=== PATIENT | male | born 1945 | race Two or more races ===

== ENCOUNTER 2017-01-26 23:41 | Emergency (ER) | payer MEDICAID, MEDICARE, OTHER ==
[~2017-01-26] VITALS: Ht 160 cm; Wt 59.0 kg
[2017-01-26] MEDS ORDERED: ASPIR 8181 MG ORAL (23:50)
[2017-01-27] MEDS ORDERED: Tylenol #3 tab (300mg/30mg) ORAL ONE
[2017-01-27 01:40] VITALS: BP 158/78
[2017-01-27] MEDS ORDERED: Morphine Sulfate 4mg/ml Inj IVP ONE (01:45)
[2017-01-27 02:09] LABS: MEAN CORPUSCULAR HEMOGLOBIN 29.4 PG (27.0-31.0); MEAN CORPUSCULAR VOLUME 92 FL (80-99); MEAN PLATELET VOLUME 7.2 FL (6.5-10.1); PLATELET COUNT 214 K/UL (150-450); RED BLOOD COUNT 5.09 M/UL (4.70-6.10); RED CELL DISTRIBUTION WIDTH 11.9 % (11.6-14.8); WHITE BLOOD COUNT 10.1 K/UL (4.8-10.8)
[2017-01-27 02:25] LABS: ALANINE AMINOTRANSFERASE 14 U/L (3-41); ALBUMIN/GLOBULIN RATIO 1.5 (1.0-2.7); ANION GAP 15 (5-15); ASPARTATE AMINO TRANSFERASE 21 U/L (5-40); CALCIUM 9.2 mg/dL (8.6-10.2); CARBON DIOXIDE 27 mEQ/L (20-30); CHLORIDE 96 mEQ/L (98-107); GLOMERULAR FILTRATION RATE > 60 mL/min (>60); HEMOLYSIS 9; POTASSIUM 3.9 mEQ/L (3.4-4.9); SODIUM 138 mEQ/L (135-145); TOTAL PROTEIN 6.5 g/dL (6.6-8.7)
[2017-01-27 02:30] LABS: TROPONIN I < 0.30 ng/mL (<=0.30)
[2017-01-27 02:36] VITALS: BP 155/72
[2017-01-27 02:36] LABS: CKMB 2.9 ng/mL (< 6.7)
--- NOTE | 2017-01-27 02:36 | Emergency Room Report ---
History of Present Illness General Chief Complaint: Pain Source: Patient, Family Member, EMS Present Illness HPI 71-year-old male presents ED complaining of left-sided rib pain status post fall. Son at bedside states that patient had a mechanical fall in shower tonight and landed on his left-sided ribs. Denies hitting his head or LOC. Complaining of 10 out of 10 pain to the left ribs. Sharp. Worse with deep breaths and movement. No aggravating or relieving factors. Denies shortness of breath. Denies cough. Denies any injuries. Denies any other associated symptoms Allergies: Coded Allergies: No Known Allergies (Unverified , 01/26/17) Patient History Past Medical History: HTN Past Surgical History: none Pertinent Family History: none Social History: Denies: alcohol use, drug use, smoking Immunizations: UTD Reviewed Nursing Documentation: PMH: Agreed, PSxH: Agreed Nursing Documentation-PM Past Medical History: No History, Except For Hx Hypertension: Yes Review of Systems All Other Systems: negative except mentioned in HPI Physical Exam Vital Signs Date Time Temp Pulse Resp B/P Pulse Ox O2 Delivery O2 Flow Rate FiO2 01/26/17 23:44 98.2 68 16 163/81 98 Room Air Sp02 EP Interpretation: reviewed, normal General Appearance: no apparent distress, alert, GCS 15, non-toxic Head: normocephalic Eyes: bilateral eye PERRL, bilateral eye normal inspection ENT: normal ENT inspection Neck: normal inspection Respiratory: normal breath sounds, speaking full sentences, other - L sided rib pain/bruising Cardiovascular #1: regular rate, rhythm, no edema Gastrointestinal: normal inspection Rectal: deferred Genitourinary: no CVA tenderness Musculoskeletal: normal inspection Neurologic: alert, oriented x3, responsive, motor strength/tone normal, sensory intact, speech normal Psychiatric: normal inspection Skin: normal inspection Lymphatic: normal inspection Medical Decision Making Diagnostic Impression: Primary Impression: Multiple fractures of ribs Qualified Codes: S22.42XA - Multiple fractures of ribs, left side, initial encounter for closed fracture Additional Impression: Fall in bathtub Qualified Codes: W18.2XXA - Fall in (into) shower or empty bathtub, initial encounter ER Course Hospital Course 71-year-old male presents to ED with L sided rib pain status post fall in shower Differential diagnoses include: fracture, dislocation, contusion Clinical course Patient placed on stretcher. After initial history and physical I ordered CT Chest CT Chest shows multiple retractions on the left with small focus suggestive of hemothorax versus pneumothorax Given patient's age and multiple rib fractures I believe patient should be admitted for pain control and observation. case discussed with [facility] trauma team and they agreed to accept the patient Labs reviewed-no leukocytosis noted, electrolytes okay, hemoglobin/hematocrit okay, trop negative EKG - NSR, no acute changes i. I feel this is a highly complex case requiring extensive working including EKG/Rhythm strip, Xray/CT/US, Blood/urine lab work, repeat exams while in ED, and administration of strong opiates/narcotics for pain control, admission to hospital or close patient follow up. Diagnosis - multiple fracture ribs, fall in bathtub Transferred in serious condition Labs Test 01/27/17 01:57 White Blood Count 10.1 K/UL (4.8-10.8) Red Blood Count 5.09 M/UL (4.70-6.10) Hemoglobin 15.0 G/DL (14.2-18.0) Hematocrit 46.8 % (42.0-52.0) Mean Corpuscular Volume 92 FL (80-99) Mean Corpuscular Hemoglobin 29.4 PG (27.0-31.0) Mean Corpuscular Hemoglobin Concent 32.0 G/DL (32.0-36.0) Red Cell Distribution Width 11.9 % (11.6-14.8) Platelet Count 214 K/UL (150-450) Mean Platelet Volume 7.2 FL (6.5-10.1) Neutrophils (%) (Auto) % (45.0-75.0) Lymphocytes (%) (Auto) % (20.0-45.0) Monocytes (%) (Auto) % (1.0-10.0) Eosinophils (%) (Auto) % (0.0-3.0) Basophils (%) (Auto) % (0.0-2.0) Sodium Level 138 mEQ/L (135-145) Potassium Level 3.9 mEQ/L (3.4-4.9) Chloride Level 96 mEQ/L (98-107) Carbon Dioxide Level 27 mEQ/L (20-30) Anion Gap 15 (5-15) Blood Urea Nitrogen 18 mg/dL (7-23) Creatinine 1.0 mg/dL (0.7-1.2) Estimat Glomerular Filtration Rate > 60 mL/min (>60) Glucose Level 148 mg/dL (74-106) Calcium Level 9.2 mg/dL (8.6-10.2) Total Bilirubin 0.3 mg/dL (0.0-1.2) Aspartate Amino Transf (AST/SGOT) 21 U/L (5-40) Alanine Aminotransferase (ALT/SGPT) 14 U/L (3-41) Alkaline Phosphatase 59 U/L (40-129) Total Creatine Kinase 161 U/L (38-174) Troponin I < 0.30 ng/mL (<=0.30) Total Protein 6.5 g/dL (6.6-8.7) Albumin 3.9 g/dL (3.5-5.2) Globulin 2.6 g/dL Albumin/Globulin Ratio 1.5 (1.0-2.7) EKG Diagnostic Results Rate: normal Rhythm: NSR ST Segments: no acute changes ASA given to the pt in ED: No Rhythm Strip Diag. Results EP Interpretation: yes Rhythm: NSR, no PVC's, no ectopy CT/MRI/US Diagnostic Results CT/MRI/US Diagnostic Results : Imaging Test Ordered: CT Chest Impression Left basilar atelectasis and small left hemothorax. Small foci of air is seen within the pleural collection which may suggest a loculated pneumothorax. Left posterior eighth, ninth, tenth, and eleventh rib fractures. Last Vital Signs Date Time Temp Pulse Resp B/P Pulse Ox O2 Delivery O2 Flow Rate FiO2 01/27/17 01:40 98.3 88 16 158/78 98 Room Air Status: improved Disposition: XFER T-TRM HOSP Condition: Serious Referrals: NOT CHOSEN NILE/,REFERRING (PCP) ISI COOPER M.D. Jan 27, 2017 02:36
[2017-01-27 02:58] VITALS: BP 155/72
--- NOTE | 2017-01-27 09:15 | Diagnostic Imaging Report ---
Indications: Fall, left-sided chest trauma and pain Technique: Continuous helical CT imaging of the thorax and upper abdomen was performed with automatic exposure control on a Siemens sensation [address] scanner. Axial images were reconstructed at 5 mm slice thickness and interval. Coronal images were reconstructed at 5 mm slice thickness. No IV contrast was administered secondary to requesting physician's order, despite no contraindications listed. CTDI volume(s): 18 mGy Total DLP: 718 mGy-cm Findings: Comparison: None Multiple contiguous lower left rib fracture are present, as follows: 8--segmental, posterior lateral displacement component, posterior nondisplaced component; 9--segmental, posterior lateral displacement component, posterior nondisplaced component; 10--segmental, posterior minimally displaced component, posterior medial comminuted displaced component; 11--segmental, posterior minimally displaced component, posterior medial comminuted displaced component; 12--posterior medial nondisplaced. Overlying chest wall soft tissues are swollen with multiple gas bubbles. The subjacent extrapleural soft tissues are likewise swollen and increased attenuation with multiple small gas bubbles. Minimal high attenuation fluid/blood suggested in the subjacent left pleural space. Presence of one or more tiny gas bubbles within the left pleural space as possible. No large pneumothorax identified. Increased interstitial markings in the subjacent left lung base and also in the dependent portion of the right lung base. 10 mm elongated irregular opacity posterior segment right upper lobe adjacent to right minor fissure. No right pleural abnormality identified.. Heart normal size. No pericardial abnormality. No mediastinal or hilar enlarged lymph nodes, other abnormal mass or fluid collection. Scattered arterial mural calcifications. Vascular patency indeterminate. Thoracic aorta nonaneurysmal. Remainder chest wall soft tissues unremarkable. No additional fracture identified. Disc marginal osteophytes scattered throughout thoracic spine. 5 cm circumscribed low-attenuation mass upper pole left kidney. 3 cm circumscribed low-attenuation mass lower pole left kidney. 5 mm calcific focus lower pole left kidney. 2 mm calcific focus interpolar region right kidney. Gallbladder contracted, limiting evaluation. Remainder of imaged upper abdominal anatomy unremarkable, though lack of IV contrast limits evaluation. Impression: Multiple lower left rib fractures as described, compatible with flail chest Evidence of transient puncture of the left lung by one or more rib fractures with left lower lobe pulmonary contusion, small hemothorax, possible tiny loculated pneumothorax, minimal chest wall subcutaneous emphysema adjacent to fractures. No large pneumothorax identified. Nonspecific increased interstitial markings right lung base subsegmental atelectasis right midlung Arteriosclerosis, vascular patency indeterminate Degenerative spondylosis Left renal cortical masses most likely cysts Nonobstructive bilateral nephrolithiasis Limited evaluation of gallbladder due to contraction No obvious acute injury to upper abdominal viscera, though lack of IV contrast limits evaluation and this examination therefore nondiagnostic to this end. If clinically indicated, consider contrast-enhanced CT scans of the abdomen and pelvis for complete evaluation in the setting of trauma. This correlates with [facility] preliminary report.
[2017-01-27 09:40] LABS: BAND NEUTROPHILS % (MANUAL) 0 % (0-8); BASOPHILS % (MANUAL) 0 % (0-2); EOSINOPHILS % (MANUAL) 0 % (0-3); LYMPHOCYTES % (MANUAL) 7 % (20-45); NEUTROPHILS % (MANUAL) 92 % (45-75); PLATELET ESTIMATE ADEQUATE; PLATELET MORPHOLOGY NORMAL; TOTAL CELLS COUNTED 100
--- NOTE | 2017-01-30 13:44 | Cardiology Report ---
APPROVED REPORT EKG Measurement Heart [id number] Normal sinus rhythm Normal ECG
== END 2017-01-27 03:00 | disposition short-term general hospital (02) ==
LOC: EDBD 23:41 → EMR 23:55
DX: S22.42XA Multiple fractures of ribs, left side, initial encounter for closed fracture (principal); I10 Essential (primary) hypertension; W18.2XXA Fall in (into) shower or empty bathtub, initial encounter; Y92.9 Unspecified place or not applicable; Y99.8 Other external cause status
CPT/HCPCS: 36415; 71250; 80053; 82550; 82553; 84484; 85007; 85025; 93005; 96360; 96374; 99285; J2270; J7040; 96361

== ENCOUNTER 2019-06-04 08:26 | Outpatient (CLI) | payer MEDICARE, MEDICAID ==
[~2019-06-04 08:26] MED LIST: ASPIR 8181 MG ORAL
--- NOTE | 2019-06-04 12:48 | Diagnostic Imaging Report ---
Indication: Abdominal pain, history of recurrent right inguinal hernia Technique: Spiral acquisitions obtained through the abdomen and pelvis. Patient given oral contrast. No IV contrast utilized, per referring physician request.. Multiplanar reconstructions were generated. Total dose length product 464.32 mGycm. CTDIvol(s) 10.51 mGy. Dose reduction achieved using automated exposure control Comparison: 08/31/2005 Findings: There is some scarring in the right inguinal region, but no inguinal hernia is demonstrated. Previously demonstrated fat-containing ventral hernia is not evident currently. There is colonic diverticulosis. There is some wall thickening of the proximal sigmoid. There is no infiltration of the pericolonic fat. Moderate stool is seen in the proximal colon. The appendix is not definitely visualized, but no findings to suggest acute appendicitis are evident. There is considerable small bowel feces in the distal ileum. Note that this is also evident on the previous study. The distal ileum is mildly prominent in caliber but this extends to the level of the ileocecal valve. Ingested contrast has only traversed the proximal small bowel. There is no small bowel wall thickening. There is dilatation of a single left upper quadrant proximal small bowel loop. The distal esophagus, stomach, duodenum are unremarkable. No free or loculated intraperitoneal gas or fluid is evident. Lack of IV contrast limits assessment of the solid organs. The liver, gallbladder, bile ducts are unremarkable. A punctate calcification is seen within the pancreatic head. The pancreas is otherwise unremarkable. The spleen is unremarkable. The adrenals are unremarkable. The kidneys demonstrate multiple fluid attenuation cysts bilaterally, also previously evident. Again demonstrated are bilateral renal calyceal calculi. The largest previously demonstrated on the right is no longer evident but others are still present. Largest calculus is in the left lower pole measuring up to 7 mm in diameter; this is new since the previous exam. No hydronephrosis or ureteral calculi are demonstrated. The bladder is somewhat thick-walled. No pelvic mass or adenopathy. The prostate is mildly enlarged. The bones demonstrate degenerative spondylosis changes. The included lung bases are clear except for minimal scarring on the left Impression: No evidence of recurrent inguinal hernia. There is scarring in the right inguinal region which may indicate prior hernia repair Colonic diverticulosis. No evidence of diverticulitis. Note, however, but there is wall thickening of the proximal sigmoid colon. Suspect secondary to circular muscle hypertrophy related to the diverticulosis, but neoplasm also possible. Endoscopy should be considered as clinically indicated Moderate colonic stool, could indicate constipation. Correlate with clinical findings Distal small bowel feces within mildly prominent distal small bowel, indicative of stasis of contents. Significance uncertain as to a lesser extent this finding was evident on prior study of 14 years earlier; possibly baseline for this patient. Note also slow forward transit of contrast within the small bowel and mild distention of a single left upper quadrant small bowel loop. No definite transition point to suggest small bowel obstruction demonstrated Bilateral nonobstructive intrarenal calculi Thick-walled bladder. This could indicate chronic bladder outlet obstruction or cystitis Mild prostatomegaly Other findings as noted, including degenerative spondylosis changes, minimal left basilar pulmonary parenchymal scarring, bilateral renal cysts The CT scanner at [facility] is accredited by the [employer] and the scans are performed using protocols designed to limit radiation exposure to as low as reasonably achievable to attain images of sufficient resolution adequate for diagnostic evaluation.
== END 2019-06-04 10:26 | disposition home or self-care (01) ==
LOC: CAT 08:26 → EDSTATUS 15:56
DX: R10.9 Unspecified abdominal pain (principal); N20.0 Calculus of kidney; N40.0 Benign prostatic hyperplasia without lower urinary tract symptoms; M47.9 Spondylosis, unspecified; K57.90 Diverticulosis of intestine, part unspecified, without perforation or abscess without bleeding
CPT/HCPCS: 74176